=== PATIENT | female | born 1975 | race Caucasian/White ===

== ENCOUNTER 2017-05-14 02:43 | Emergency (ER) | payer BC ==
[2017-05-14 02:56] LABS: Urine Bilirubin Negative (NEGATIVE); Urine Blood 250 /ul (NEGATIVE); Urine Ketone Negative (NEGATIVE); Urine Nitrite Negative (NEGATIVE); Urine Protein Negative (NEGATIVE); Urine Specific Gravity <=1.005 SP.GR. (1.005-1.010); Urine Urobilinogen Normal (NORMAL); Urine pH 6.5 pH (5.0-7.0)
[2017-05-14 03:03] LABS: Urine Appearance Slightly Cloudy; Urine Bacteria None Seen; Urine Color Colorless; Urine WBC >50 /hpf (0-5)
[2017-05-14 03:04] LABS: Urine Yeast Few - 1+
[2017-05-14] MEDS ORDERED: CIPROFLOXACIN HCL 250 MG TABLET PO ONE (03:17)
[2017-05-14] MEDS ORDERED: CIPROFLOXACIN HCL 250 MG TABLET ONE (03:17)
[2017-05-14 03:20] VITALS: BP 117/80
--- NOTE | 2017-05-14 03:23 | ERNOTE ---
ER Female HPI Date of Service: 05/14/17 Stated Complaint: UTI Presenting Symptoms: dysuria Time Seen by Provider: 05/14/17 02:50 Immunizations: IMMUNIZATION HX Immunizations Up to Date Yes History of Influenza Vaccine No Hx Pneumococcal Vaccination No Allergies/Adverse Reactions: Allergies No Known Allergies Allergy (Verified 04/14/13 06:11) Home Medications: HOME MEDICATIONS Ciprofloxacin HCl 500 mg PO BID #14 tablet 05/14/17 [Last Taken Unknown] - History of Present Illness Narrative: 41-year-old female comes to the emergency department with 1-1/2 days of dysuria frequency and urgency. This morning she woke up and noticed blood at the end of urination. She became concerned and came to the emergency department. She has had frequent bladder infections in the past. Patient says she is having some mild lower back pain, but states "I always have low back pain". She denies any fever. She denies any nausea or vomiting. She says that she's been treated in the past and been told that her bladder infections are resistant to Bactrim. The patient has had no vomiting no nausea and no abdominal pain no flank pain. She denies vaginal discharge Review of Systems - Review of Systems Constitutional: Present: See HPI Genitourinary: Present: See HPI, frequency, dysuria All Other Systems: All systems neg except as marked - Patient's Past Medical History Patient History - Medical: Kidney stone, UTI'S Patient History - Cardiac/Respiratory: No pertinent hx Patient History - Cancer: No Hx of Cancer Patient History - Surgical Procedures: Appendectomy, Cholecystectomy Patient History - Other: None LMP (females 10-50): last week - Social History Living Situations: home Abuse History: No History of abuse Psych History: No pertinent hx Smoking Status: Never smoker Have you smoked in the past 12 months: No Do you dip or chew tobacco: No Alcohol Use: rarely Drug Use: none - Immunizations Immunizations Up to Date: Yes Hx Pneumococcal Vaccination: No History of Influenza Vaccine: No Physical Exam - Physical Exam General Appearance: Present: wd/wn, alert, no apparent distress Head Exam: Present: normal inspection, no evidence of injury Ears, Nose, Throat: Present: normal ENT inspection, normal pharynx Neck: Present: normal inspection, nontender Respiratory: Present: no respiratory distress, lungs clear Cardiovascular/Chest: Present: regular rate, rhythm, no murmur, normal peripheral pulses Gastrointestinal/Abdominal: Present: normal bowel sounds, nontender Back Exam: Present: normal inspection, normal range of motion, no CVA tenderness , no vertebral tenderness Extremity Exam: Present: normal inspection, non-tender, no edema Neurological Exam: Present: alert, oriented, normal mood/affect, no motor/ sensory deficits Skin Exam: Present: normal color, warm/dry Lymphatic Exam: Present: no adenopathy ED Progress - Results and Orders Patient's Lab Results:: I have reviewed the patient's lab results. - Vital Signs Patient's Vital Signs:: I have reviewed the patient's vital signs. Vital Signs: Vital Signs 05/14/17 02:46 Temperature 36.7 C Pulse Rate 86 Respiratory 14 Rate Blood Pressure 146/91 O2 Sat by Pulse 99 Oximetry - Progress/Reassessment Chief Complaint: Urinary Tract Problems Departure Clinical Impression: Urinary tract infection Qualifiers: Urinary tract infection type: acute cystitis - Departure Disposition: Home self-care Condition: Good Instructions: Urinary Tract Infection, Adult, [id number] Additional Instructions: As we discussed, her symptoms are very consistent with a bladder infection, and her urinalysis shows a bladder infection. I do not get the impression that we need to look any further for kidney stone. Take the 80s though like you have been. Do not be concerned if your urine turns orange. This is a normal side effect. He can stop taking when the symptoms are gone. Date of 7 days of the prescribed antibiotics. Do not stop early because should feel better. [facility] family doctor set up a follow-up appointment. Return to the ER for any new concerning symptoms Referrals: Francis Garcia MD [Primary Care Provider] - Prescriptions: Ciprofloxacin HCl 500 mg PO BID #14 tablet
== END 2017-05-14 03:23 | disposition home or self-care (01) ==
LOC: ER 02:43
DX: N39.0 Urinary tract infection, site not specified (principal)